=== PATIENT | male | born 1955 | race Caucasian/White ===

== ENCOUNTER 2019-12-01 01:50 | Outpatient (CLI) | payer BC, SELFPAY ==
[2019-12-01 17:58] LABS: SARS-CoV-2 RNA PCR Negative
== END 2019-12-01 01:51 | disposition home or self-care (01) ==
LOC: ANHCOVIDDT 01:50
PROVIDERS: PCP Internal Medicine; Visit Provider Internal Medicine Gastroenterology
DX: Z01.812 Encounter for preprocedural laboratory examination (principal); Z20.828 Contact with and (suspected) exposure to other viral communicable diseases
CPT/HCPCS: 87635; C9803; U0003

== ENCOUNTER 2019-12-03 02:25 | Day surgery (SDC) | payer BC, SELFPAY ==
[2019-11-27 08:32] VITALS: BMI 29.0
--- NOTE | 2019-12-02 09:47 | WPDANESEPP ---
Anes - Eval Pre Procedure Procedure: Operation Date: 12/03/19 07:30 Proposed Procedures p Screening Colonoscopy - Daniel Hines MD Date/Time: 12/02/19 09:47 Pre Op Diagnosis: Neoplasm Screening Patient Data Age: 64 Gender: M Height: 1.93 m Weight: 108 kg Allergies Allergy/AdvReac Type Severity Reaction Status Date / Time No Known Allergies Allergy Verified 11/27/19 08:38 Home Medications Medication Instructions Recorded Confirmed Type escitalopram oxalate [Lexapro] 20 mg PO DAILY 11/27/19 11/27/19 History levothyroxine 75 mcg PO DAILY 11/27/19 11/27/19 History meloxicam 7.5 mg PO DAILY PRN 11/27/19 11/27/19 History metoprolol succinate 25 mg PO DAILY 11/27/19 11/27/19 History mirtazapine [Remeron] 60 mg PO HS 11/27/19 11/27/19 History quetiapine [Seroquel XR] 150 mg PO HS 11/27/19 11/27/19 History rosuvastatin [Crestor] 5 mg PO DAILY 11/27/19 11/27/19 History vardenafil [Levitra] 10 mg PO DAILY 11/27/19 11/27/19 History Patient hx anesthesia problems: none Family hx anesthesia problems: none [facility] Past Medical History Medical History Hyperlipidemia Hypertension Hypothyroid Social History Social History Smoking packs per day: 1 Smoking cigarettes per day: 20.0 Years smoked: 10 Smoking pack-years: 10.00 Smoking status: Former smoker Substance use type: does not use Spiritual care concerns: No Exam Day of Procedure 12/02/19 09:47
[2019-12-03 06:28] VITALS: BP 143/106; PULSE 81; RESP 20; TEMP 36.4; O2SAT 98
[2019-12-03] MEDS: LACTATED RINGERS 1,000 ML 150 ML IV CONT (06:50)
--- NOTE | 2019-12-03 06:59 | P.HP_ITS ---
History of Present Illness History of Present Illness Consent: Risks, benefits, and alternatives have been discussed and questions answered. Patient agrees to proceed with procedure. Chief complaint: Neoplasm Screening Narrative: Kumar Juares is a 64 year old W male Referred for screening colonoscopy. Patient's last colonoscopy was over 10 years ago. He is asymptomatic there is no family history of colon cancer. [facility] Past Medical History Medical History Hyperlipidemia Hypertension Hypothyroid Social History Social History Smoking packs per day: 1 Smoking cigarettes per day: 20.0 Years smoked: 10 Smoking pack-years: 10.00 Smoking status: Former smoker Substance use type: does not use Living arrangements: with family Spiritual care concerns: No Meds Home Medications and Allergies Home Medications Medication Instructions Recorded Confirmed Type escitalopram oxalate [Lexapro] 20 mg PO DAILY 11/27/19 11/27/19 History levothyroxine 75 mcg PO DAILY 11/27/19 11/27/19 History meloxicam 7.5 mg PO DAILY PRN 11/27/19 11/27/19 History metoprolol succinate 25 mg PO DAILY 11/27/19 11/27/19 History mirtazapine [Remeron] 60 mg PO HS 11/27/19 11/27/19 History quetiapine [Seroquel XR] 150 mg PO HS 11/27/19 11/27/19 History rosuvastatin [Crestor] 5 mg PO DAILY 11/27/19 11/27/19 History vardenafil [Levitra] 10 mg PO DAILY 11/27/19 11/27/19 History Allergies Allergy/AdvReac Type Severity Reaction Status Date / Time No Known Allergies Allergy Verified 12/03/19 06:26 Vital Signs Vital Signs - 24 hr 12/03/19 06:28 Temperature 36.4 C L Pulse Rate 81 Respiratory Rate 20 Blood Pressure 143/106 H Pulse Oximetry 98 Exam Const: Orientation/consciousness: patient oriented x3 Resp: Auscultation: clear to auscultation bilaterally Cardio: Rate: regular rate Rhythm: regular rhythm Heart sounds: no murmurs GI: GI Palp: Yes Soft to palpation, No Tenderness to palpation present (GI), Yes No hepatosplenomegaly present and No Palpable mass present Auscultation: normal bowel sounds Neuro: General: patient oriented x3 and no focal motor deficits Extrem: General: no pedal edema Assessment and Plan Additional Plan Screening colonoscopy in average risk patient
--- NOTE | 2019-12-03 07:03 | P.PNAN_ITS ---
Anes - Initial Pre Proc Eval Procedure: Operation Date: 12/03/19 07:30 Proposed Procedures p Screening Colonoscopy - Daniel Hines MD Date/Time: 12/03/19 07:03 Surgeon: Daniel Hines MD Pre Op Diagnosis: Neoplasm Screening Patient Data Age: 64 Gender: M Height: 6 ft 4 in Weight: 110.7 kg Last Vital Signs Temp 97.5 F L 12/03/19 06:28 Pulse 81 12/03/19 06:28 Resp 20 12/03/19 06:28 BP 143/106 H 12/03/19 06:28 Pulse Ox 98 12/03/19 06:28 Allergies Allergy/AdvReac Type Severity Reaction Status Date / Time No Known Allergies Allergy Verified 12/03/19 06:26 Home Medications Medication Instructions Recorded Confirmed Type escitalopram oxalate [Lexapro] 20 mg PO DAILY 11/27/19 11/27/19 History levothyroxine 75 mcg PO DAILY 11/27/19 11/27/19 History meloxicam 7.5 mg PO DAILY PRN 11/27/19 11/27/19 History metoprolol succinate 25 mg PO DAILY 11/27/19 11/27/19 History mirtazapine [Remeron] 60 mg PO HS 11/27/19 11/27/19 History quetiapine [Seroquel XR] 150 mg PO HS 11/27/19 11/27/19 History rosuvastatin [Crestor] 5 mg PO DAILY 11/27/19 11/27/19 History vardenafil [Levitra] 10 mg PO DAILY 11/27/19 11/27/19 History Patient hx anesthesia problems: none Family hx anesthesia problems: none [facility] Past Medical History Medical History Hyperlipidemia Hypertension Hypothyroid Social History Social History Smoking packs per day: 1 Smoking cigarettes per day: 20.0 Years smoked: 10 Smoking pack-years: 10.00 Smoking status: Former smoker Substance use type: does not use Living arrangements: with family Spiritual care concerns: No Anes - Eval Final PreProcedure Day of Procedure 12/03/19 07:03 Patient weight: obese Heart: regular rate and rhythm Lungs: clear to auscultation Airway: Mallampati scale class II Neurological: alert and oriented Last oral intake: >/= 8 hours ASA classification: III Emergent: no Anesthetic plan: proceed Anesthesia type and monitoring: general GIVS and standard monitoring Informed Consent: The patient's anesthetic plan and its attendant risks and benefits were discussed with the patient/family/POA. Questions were solicited and answers provided to the satisfaction of the patient/family/POA.
[2019-12-03] MEDS: SIMETHICONE ORAL SUSPENSION 20 MG/0.3 ML 30 ML BOTTLE 0.6 ML IRRIGATION (07:34)
[2019-12-03 07:48] VITALS: BP 89/59; PULSE 71; RESP 16; O2SAT 95
[2019-12-03 07:58] VITALS: BP 102/72; PULSE 69; RESP 13; O2SAT 96
[2019-12-03 08:07] VITALS: BP 103/77; PULSE 69; RESP 14; O2SAT 95
== END 2019-12-03 08:18 | disposition home or self-care (01) ==
PROVIDERS: PCP Internal Medicine; Visit Provider Internal Medicine Gastroenterology
PROC: 0DJD8ZZ Inspection of Lower Intestinal Tract, Via Natural or Artificial Opening Endoscopic (ICD-10-PCS; CPT 45378; principal; 2019-12-03 07:30)
DX: Z12.11 Encounter for screening for malignant neoplasm of colon (principal); E78.5 Hyperlipidemia, unspecified; I10 Essential (primary) hypertension; E03.9 Hypothyroidism, unspecified; Z87.891 Personal history of nicotine dependence; E66.9 Obesity, unspecified; Z68.29 Body mass index [BMI] 29.0-29.9, adult
CPT/HCPCS: 45378; J2704; J7120

== ENCOUNTER 2020-10-31 14:08 | Outpatient (CLI) | payer MEDICARE, SELFPAY ==
--- NOTE | ~2020-10-31 | XR_ITS ---
EXAMINATION: XR lumbar spine 2-3V DATE: 10/31/2020 14:41 INDICATION: Chronic left hamstring strain. TECHNIQUE: 3 views of lumbar spine were obtained. COMPARISON: None. FINDINGS: There is 9 degrees levocurvature of lumbar spine. There is 3 mm retrolisthesis of L2 on L3. Vertebral body heights are normal. There is mildly decreased disc height at T12-L1 and L1-L2, severe ly decreased disc height at L2-L3, moderately decreased disc height at L3-L4, mildly decreased disc h eight at L4-L5, and severely decreased disc height at L5-S1. There are endplate osteophytes at all le vels. There is multilevel severe facet joint osteoarthritis. IMPRESSION: 1. Severe lumbar spondylosis. Reviewed, dictated and finalized at location A.
== END 2020-10-31 14:09 | disposition home or self-care (01) ==
PROVIDERS: PCP Internal Medicine; Visit Provider Internal Medicine
DX: S76.319A Strain of muscle, fascia and tendon of the posterior muscle group at thigh level, unspecified thigh, initial encounter (principal); M47.816 Spondylosis without myelopathy or radiculopathy, lumbar region
CPT/HCPCS: 72100